=== PATIENT | male | born 1940 | race Caucasian/White ===

== ENCOUNTER → 2016-10-15 | Outpatient (CLI) | payer MEDICARE ==
[~2016-10-15] MED LIST: ADVAIR 2501 DISK W/D PO; ALBUTEROL MININEB NEB; ALBUTEROL17 GM INH; ALPRAZOLAM PO; BROVANA15 MCG/2 M INH; BUDESONIDE0.25 MG/2 INH; BUDESONIDE0.5 MG/2 M NEB; CEFTIN PO; CLARITIN10 M3 PO; DOXYCYCLINE HY100 M4 PO; DOXYCYCLINE PO; FLOMAX0.4 M1 PO; FLOMAX0.4 MG PO; FLONASE 0.05% N16 GM; FLONASE ALLERG9.9 ML; FLOVENT DI50 MCG/DIS INH; LEVAQUIN PO; LEVAQUIN750 M1 PO; MEDROL PO; OMNICEF PO; OXYGEN; PATIENT'S PHARMACY; PREDNISONE; PREDNISONE PO; PREDNISONE10 MG PO; PRO AIR PO; ROBITUSSIN ALL118 ML PO; SEROQUEL PO; SINGULAIR PO; SPIRIVA18 MCG INH; ZITHROMAX PO
--- NOTE | ~2016-10-15 | CT57 ---
[facility] A Service [facility] & [facility] RADIOLOGY TEXT RESULTS PATIENT: JENIFFER GUERRERO LOCATION: [facility] : 41 UNIT #: [id number] AGE: [address]: Freddy Lee MD SEX: M ORDER DR: [id number] [facility] [address] [place], [place] [address] [id number] O MR#: [id number] Acc #: [id number] NAME: JENIFFER GUERRERO : 1940 SEX: M STUDY DATE/TIME: 10/15/2016 14:04 UNIT: [facility] ROOM: STUDY DESCRIPTION: CT Chest Wo Cont Attending Physician: Freddy Lee M.D. Referring Physician: Freddy Lee M.D. Ordering Physician: Freddy Lee M.D. Primary Care Physician: Desmond Rashid M.D. MEDICAL IMAGING REPORT This report is preliminary unless electronic signature is present EXAM CT chest without contrast. DATE OF EXAM 10/15/2016 INDICATIONS 76-year-old male with history of COPD. Follow up pulmonary nodules. TECHNIQUE CT chest performed without contrast. Coronal and sagittal reformatted images were obtained. NOTE: This CT exam was performed with one or more of the following radiation dose reduction techniques: automatic exposure control, adjustment of mA and/or kV according to patient size, and iterative reconstruction. COMPARISON Comparison with 10/26/2015 and 03/21/2016. FINDINGS Stable emphysema. Irregular parenchymal density in the left upper lobe is unchanged from the most recent study and appears slightly smaller than the study from 10/26/2015; however, this may be due to differences in slice thickness. There is a tiny irregular density in the left upper lobe on image 24, also another tiny irregular density in the right upper lobe on image 22. Both of these are unchanged. No new nodules. Emphysema. There are calcified mediastinal lymph nodes. Stable enlargement of the main pulmonary artery which is nonspecific, but can be seen with pulmonary arterial hypertension. Coronary artery calcification. No pleural effusion. Limited imaging in the upper abdomen is unremarkable. The bone windows are unremarkable. IMPRESSION [facility] A Service of [facility] & [facility] RADIOLOGY TEXT RESULTS PATIENT: JENIFFER GEURRERO LOCATION: [facility] : 41 UNIT #: [id number] AGE: [address]: Freddy Lee MD SEX: M ORDER DR: 1. Stable bilateral irregular parenchymal densities dating back to October 2015. I would suggest another 6-month follow up to document continued stability. 2. Emphysema. Dictated by... Cole Degroot M.D. THIS IS AN ELECTRONICALLY VERIFIED REPORT Cole Degroot M.D. at 10/16/2016 4:42 PM DAWSON/jayla TD: 10/15/2016 21:01 JOB #: [id number] MEDICAL IMAGING REPORT COPY
== END | disposition home or self-care (01) ==
LOC: CCAT 13:24
DX: J44.1 Chronic obstructive pulmonary disease with (acute) exacerbation (principal); J98.4 Other disorders of lung
CPT/HCPCS: 71250

== ENCOUNTER 2016-12-25 08:08 | Emergency (ER) | payer MEDICARE | END 2016-12-25 10:54 | disposition home or self-care (01) | LOC: CED 08:08 | DX: N40.1 Benign prostatic hyperplasia with lower urinary tract symptoms (principal); R33.8 Other retention of urine; J44.9 Chronic obstructive pulmonary disease, unspecified; Z88.5 Allergy status to narcotic agent; Z88.8 Allergy status to other drugs, medicaments and biological substances | CPT/HCPCS: 51702; 99283 ==

== ENCOUNTER → 2017-04-24 | Outpatient (CLI) | payer MEDICARE ==
--- NOTE | ~2017-04-24 | CT57 ---
[facility] A Service of [facility] & [facility] RADIOLOGY TEXT RESULTS PATIENT: JENIFFER GUERRERO LOCATION: [facility] : 42 UNIT #: [id number] AGE: [address]: Freddy Lee MD SEX: M ORDER DR: [id number] [facility] [address] [place], [place] [address] [id number] O MR#: [id number] Acc #: [id number] NAME: JENIFFER GUERRERO : 1940 SEX: M STUDY DATE/TIME: 04/24/2017 11:14 UNIT: [facility] ROOM: STUDY DESCRIPTION: CT Chest Wo Cont Attending Physician: Freddy Lee M.D. Referring Physician: Freddy Lee M.D. Ordering Physician: Freddy Lee M.D. Primary Care Physician: Desmond Rashid M.D. MEDICAL IMAGING REPORT This report is preliminary unless electronic signature is present EXAM CT scan of the chest without contrast. INDICATIONS Chronic obstructive pulmonary disease with acute exacerbation. Follow-up pulmonary nodules. COMPARISON 10/15/2016 TECHNIQUE Axial 2 mm images were obtained through the chest without contrast. Sagittal and coronal reconstructions were generated. This CT exam was performed with one or more of the following radiation dose reduction techniques: automatic exposure control, adjustment of mA and/or kV according to patient size, and iterative reconstruction. FINDINGS The thyroid gland is normal. The aorta is normal in size. There is no mediastinal or hilar adenopathy. The visualized portions of the upper abdomen are normal. There is an area of what appears to be scarring in the right upper lobe anteriorly. This is about a centimeter in diameter and is seen on image 67. There is another area slightly longer in nature about 2 to 2.5 cm in diameter on image 48 in the left upper lobe which is stable, and another one in the left upper lobe measuring about a centimeter near the pleura is also present and stable. These are all unchanged from the prior studies dating back to October 2015. IMPRESSION Three areas of irregular parenchymal density with two in the left upper lobe, and one in the right upper lobe are all unchanged from old studies dating back to October 2015. There has been a year and a half follow up. [facility] A Service of [facility] & [facility] RADIOLOGY TEXT RESULTS PATIENT: JENIFFER GUERRERO LOCATION: [facility] #: [id number] : 42 UNIT #: [id number] AGE: [address]: Freddy Lee MD SEX: M ORDER DR: Repeat examination in 6-to-12 months is recommended. Otherwise, the study is negative. Dictated by... Helder Collins M.D. THIS IS AN ELECTRONICALLY VERIFIED REPORT Helder Collins M.D. at 04/25/2017 9:41 AM ASHLEY/jayla TD: 04/25/2017 00:47 JOB #: [id number] MEDICAL IMAGING REPORT Page 1 of 1 COPY
== END | disposition home or self-care (01) ==
LOC: CCAT 10:13
DX: J44.1 Chronic obstructive pulmonary disease with (acute) exacerbation (principal); R63.0 Anorexia; R91.8 Other nonspecific abnormal finding of lung field; J98.4 Other disorders of lung
CPT/HCPCS: 71250